=== PATIENT | female | born 1995 | race Caucasian/White ===

== ENCOUNTER 2016-08-07 09:48 | Emergency (ER) | payer BC, OTHER ==
[~2016-08-07] VITALS: Ht 170.2 cm; Wt 70.3 kg
[2016-08-07 10:11] VITALS: BP 128/66
[2016-08-07] MEDS ORDERED: ALPRAZolam 0.5 MG TAB PO ONE (11:45)
== END 2016-08-07 12:30 | disposition home or self-care (01) ==
LOC: ER 09:48
DX: F43.20 Adjustment disorder, unspecified (principal); R06.4 Hyperventilation; R42 Dizziness and giddiness; R07.9 Chest pain, unspecified; R55 Syncope and collapse; Z90.49 Acquired absence of other specified parts of digestive tract
CPT/HCPCS: 93005